=== PATIENT | male | born 1955 | race Caucasian/White ===

== ENCOUNTER 2018-11-10 18:47 | Emergency (ER) | payer MEDICAID ==
[~2018-11-10] VITALS: Ht 167.6 cm; Wt 85.3 kg
[2018-11-10 18:49] VITALS: BP 122/47
--- NOTE | 2018-11-10 18:58 | NUR ---
PT AMBULATED TO BED #6
--- NOTE | 2018-11-10 19:00 | NUR ---
63/M PRESENTS TO ED WITH , C/O SHARP R KNEE PAIN AND BURNING L PLANTAR PAIN, X2 MONTHS. ALSO REPORTS PAIN THROUGHOUT THE BODY, X8 YEARS. REPORTS THAT PAIN IS WORSE IN THE MORNING. DENIES TRAUMA/INJURY, NO SWELLING/BRUISING/ERYTHEMA/DEFORMITY. PT DENIES CP, SOB, N/V. PT AWAKE AND ALERT, SKIN NORMAL WARM AND DRY, RR EVEN AND UNLABORED. DENIES MED HX; OTC TYLENOL, AND VICODIN FROM [place] SOMETIMES WITHOUT RELIEF
--- NOTE | 2018-11-10 19:17 | NUR ---
RECEIVED REPORT FROM NADIRA JUNG. ASSUMED CARE AT THIS TIME.
[2018-11-10] MEDS ORDERED: LIDOCAINE/EPI 2% 1:100000 20 ML VIAL INJ ONE (20:20)
[2018-11-10] MEDS ORDERED: KETOROLAC 15 MG/ML VIAL IM ONE (20:25)
--- NOTE | 2018-11-10 20:30 | NUR ---
PT LYING SUPINE. VSS AT THIS TIME. WILL CONTINUE TO MONITOR.
--- NOTE | 2018-11-10 20:30 | NUR ---
EKG PERFORMED AT BEDSIDE
--- NOTE | 2018-11-10 22:00 | NUR ---
PT VSS. NO CHANGE IN PT CONDITION. WILL CONTINUE TO MONITOR
--- NOTE | 2018-11-10 22:02 | NUR ---
PT AMBULATED TO THE RESTROOM. STEADY GAIT OBSERVED
[2018-11-10 22:09] LABS: BASOPHILS % (AUTO) 0.8 % (0.0-2.0); EOSINOPHILS # (AUTO) 0.1 K/uL (0-0.4); HEMATOCRIT 43.1 % (36-52); HEMOGLOBIN 14.4 g/dL (12.0-18.0); LYMPHOCYTES # (AUTO) 1.5 K/uL (2.0-11.5); LYMPHOCYTES % (AUTO) 28.1 % (20.5-51.1); MEAN CORPUSCULAR HEMOGLOBIN 30 pg (27-31); MEAN CORPUSCULAR HGB CONC 33 g/dL (33-37); MEAN CORPUSCULAR VOLUME 90.3 fL (80-94); MONOCYTES # (AUTO) 0.4 K/uL (0.8-1.0); MONOCYTES % (AUTO) 7.4 % (1.7-9.3); NEUTROPHILS # (AUTO) 3.3 K/uL (1.8-7.7); NEUTROPHILS % (AUTO) 62.7 % (42.2-75.2); PLATELET COUNT (AUTO) 189 K/uL (140-450); RED BLOOD CELL COUNT(AUTO) 4.77 MIL/uL (4.20-6.10); RED CELL DISTRIBUTION WIDTH 14.4 % (11.6-13.7); WHITE BLOOD COUNT (AUTO) 5.2 K/uL (4.8-10.8)
--- NOTE | 2018-11-10 22:21 | NUR ---
PT O2 SATURATION DROPPED TO 87% ON RA. PT PLACED ON 2L O2 VIA NASAL CANNULA. O2 SATURATION INCREASED TO 95%.
[2018-11-10 22:23] LABS: ANION GAP 9.8 (8-16); POTASSIUM 3.8 mmol/L (3.5-5.1)
[2018-11-10 22:31] LABS: ALBUMIN 3.4 g/dL (3.4-5.0); TOTAL BILIRUBIN 0.2 mg/dL (0.0-1.0)
--- NOTE | 2018-11-10 23:23 | NUR ---
PT O2 MAINTAINED AT 99% ON 2L O2 VIA NASAL CANNULA.
--- NOTE | 2018-11-11 01:35 | NUR ---
PT MOVED TO BED 11. REPORT RECEIVED FROM NADIRA VAIL. TRANSFER OF CARE AT THIS TIME.
--- NOTE | 2018-11-11 01:45 | NUR ---
PT RESTING COMFORTABLY IN BED WITH VSS. SKIN PINK, WARM, DRY. BREATHING EVEN, UNLABORED.
--- NOTE | 2018-11-11 02:22 | NUR ---
LIDOCAINE DRAWN AND ADMINISTERED BY DR. DUNCAN.
--- NOTE | 2018-11-11 02:26 | NUR ---
ARTHROCENTESIS PROCEDURE IN PROGRESS BY DR. DUNCAN.
--- NOTE | 2018-11-11 02:42 | NUR ---
SEROUSANGUEOUS SYNOVIAL FLUID SPECIMEN COLLECTED FROM RIGHT KNEE. SPECIMEN WALKED TO LAB BY RN.
--- NOTE | 2018-11-11 03:00 | NUR ---
PT AMBULATED TO WITH STEADY GAIT.
--- NOTE | 2018-11-11 03:58 | NUR ---
PT SLEEPING IN BED WITH VSS. AROUSABLE TO VERBAL STIMULI. SKIN PINK, WARM, DRY. BREATHING EVEN, UNLABORED.
--- NOTE | 2018-11-11 04:39 | NUR ---
PT SLEEPING IN BED WITH VSS. AROUSABLE TO VERBAL STIMULI. SKIN PINK, WARM, DRY. BREATHING EVEN, UNLABORED.
[2018-11-11 04:40] LABS: APPEARANCE,SPUN,BODY FLUID CLEAR (CLEAR); APPEARANCE,UNSPUN,BODY FLUID BLOODY (CLEAR); COLOR,BODY FLUID LT YELLOW (LT YELLOW); POLYNUCLEAR, BODY FLUID 11 %; RBC, BODY FLUID 36883 /cu. mm.; SPECIMENTYPE,BODY FLUID SYNOVIAL; TOTAL VOLUME,BODY FLUID 28 mL; WBC, BODY FLUID 255 /cu. mm.
[2018-11-11 05:00] VITALS: BP 113/70
--- NOTE | 2018-11-11 05:00 | NUR ---
Patient discharged with v/s stable. Written and verbal after care instructions given and explained. Patient alert, oriented and verbalized understanding of instructions. Ambulatory with steady gait. All questions addressed prior to discharge. ID band removed. Patient advised to follow up with PMD. Rx of Naproxyn given. Patient educated on indication of medication including possible reaction and side effects. Opportunity to ask questions provided and answered. List of orthopedic surgeons given.
== END 2018-11-11 05:00 | disposition home or self-care (01) ==
LOC: MED 18:47
DX: M25.462 Effusion, left knee (principal); M17.12 Unilateral primary osteoarthritis, left knee
CPT/HCPCS: 36415; 73562; 73630; 80053; 82945; 84157; 84484; 85025; 87205; 89051; 93005; 96372; 99284; J1885; J2001; Q0092

== ENCOUNTER 2018-12-15 18:43 | Emergency (ER) | payer SELFPAY ==
[~2018-12-15] VITALS: Ht 170.2 cm; Wt 83.0 kg
[2018-12-15 18:48] VITALS: BP 134/88
== END 2018-12-15 21:56 | disposition left against medical advice (07) ==
LOC: MED 18:43
DX: M25.561 Pain in right knee (principal); M25.562 Pain in left knee; Z53.21 Procedure and treatment not carried out due to patient leaving prior to being seen by health care provider

== ENCOUNTER 2018-12-16 06:48 | Emergency (ER) | payer SELFPAY ==
[~2018-12-16] VITALS: Ht 170.2 cm; Wt 81.6 kg
[2018-12-16 06:50] VITALS: BP 110/74
--- NOTE | 2018-12-16 06:50 | NUR ---
TO BED # 12 AMBULATORY
--- NOTE | 2018-12-16 07:20 | NUR ---
C/O CHRONIC R KNEE PAIN 11/23 X 3 MONTHS. PT DENIES INJURY. NO OBVIOUS DEFORMITY TO RLE/R KNEE. +2 R FOOT PEDAL PULSE. -SWELLING, - REDNESS. PT REPORTS HX OF ARTHRITIS. BED IN LOW POSITION, SIDE RAIL UP X1
[2018-12-16] MEDS ORDERED: KETOROLAC 60 MG/2 ML VIAL IM ONE (07:25)
--- NOTE | 2018-12-16 07:30 | NUR ---
DR. HURLEY AT BEDSIDE
--- NOTE | 2018-12-16 07:50 | NUR ---
PT REFUSED KATHY WRAP, STATES HE HAS TWO KNEE IMMOBILIZERS AT HOME HE PREFERS TO USE.
[2018-12-16 08:00] VITALS: BP 110/74
--- NOTE | 2018-12-16 08:00 | NUR ---
Patient discharged with v/s stable. Written and verbal after care instructions given and explained. Patient alert, oriented and verbalized understanding of instructions. Ambulatory with steady gait. All questions addressed prior to discharge. ID band removed. Patient advised to follow up with PMD. Rx of ANAPROX given. Patient educated on indication of medication including possible reaction and side effects. Opportunity to ask questions provided and answered.
== END 2018-12-16 08:07 | disposition home or self-care (01) ==
LOC: MED 06:48
DX: M17.0 Bilateral primary osteoarthritis of knee (principal); G89.29 Other chronic pain
CPT/HCPCS: 96372; 99283; J1885